=== PATIENT | female | born 1975 | race Two or more races ===

== ENCOUNTER 2020-07-07 21:58 | Emergency (ER) | payer OTHER ==
[~2020-07-07] VITALS: Ht 157.5 cm; Wt 89.8 kg
[~2020-07-07 21:58] MED LIST: BUPR-51; LISI20TA PO; MINO80TA PO; ZOLP5TAB2; [UNRECOGNIZED DRUG - CODE]
--- NOTE | 2020-07-07 22:11 | NUR ---
SEEN AND EXAMINED BY
--- NOTE | 2020-07-07 22:12 | NUR ---
PATIENT CAME TO ER BED 5 C/O NON-RADIATING MIDSTERNAL CHEST PAIN UPON BREATHING SINCE TODAY "CHILLING" AROUND THE AFTERNOON. PATIENT STATES THAT SHE HAS BEEN FEELING DIZZY. PATIENT IS AAOX4. NO SOB. BREATHING EVENLY AND UNLABORED ON ROOM AIR. 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
[2020-07-07] MEDS ORDERED: PANTOPRAZOLE 40 MG VIAL ONE (22:13)
--- NOTE | 2020-07-07 22:22 | NUR ---
BLOOD COLLECTED AND SENT TO THE LAB.
[2020-07-07] MEDS ORDERED: PANTOPRAZOLE 40 MG VIAL IV ONE (22:30)
--- NOTE | 2020-07-07 22:45 | NUR ---
US AT BEDSIDE.
--- NOTE | 2020-07-07 22:45 | NUR ---
XRAY AT BEDSIDE
[2020-07-07 22:56] LABS: BASOPHILS # (AUTO) 0.1 /CMM (0.0-0.2); BASOPHILS % (AUTO) 1.1 % (0.0-2.0); HEMATOCRIT 36 % (33-45); HEMOGLOBIN 11.5 g/dL (11.5-14.8); LYMPHOCYTES # (AUTO) 2.2 /CMM (0.8-4.8); LYMPHOCYTES % (AUTO) 17.6 % (20.0-44.0); MEAN CORPUSCULAR HGB CONC 32 g/dl (31.0-36.0); MEAN CORPUSCULAR VOLUME 81 fL (82-100); MONOCYTES % (AUTO) 8.1 % (2.0-12.0); NEUTROPHILS # (AUTO) 8.8 /CMM (1.8-8.9); NEUTROPHILS % (AUTO) 69.2 % (43.0-81.0); PLATELET COUNT (AUTO) 413 /CMM (150-450); RED BLOOD CELL COUNT(AUTO) 4.39 MIL/uL (4.0-5.2); WHITE BLOOD COUNT (AUTO) 12.7 K/uL (4.3-11.0)
[2020-07-07 23:13] LABS: ALANINE AMINOTRANSFERASE 19 U/L (12-78); ALBUMIN 3.3 g/dL (3.4-5.0); ALKALINE PHOSPHATASE 104 U/L (46-116); ASPARTATE AMINOTRANSFERASE 15 U/L (15-37); BILIRUBIN,TOTAL 0.1 mg/dL (0.2-1.0); CALCIUM, SERUM 9.2 mg/dL (8.5-10.1); CARBON DIOXIDE 27 mmol/L (21-32); CHLORIDE 101 mmol/L (98-107); CREATININE 0.9 mg/dL (0.6-1.3); GLUCOSE 118 mg/dL (74-106); LIPASE 244 U/L (73-393); POTASSIUM 4.3 mmol/L (3.5-5.1); SODIUM SERUM 136 mmol/L (136-145); TOTAL PROTEIN, SERUM 8.1 g/dL (6.4-8.2); UREA NITROGEN, BLOOD 10 mg/dL (7-18)
--- NOTE | 2020-07-07 23:20 | NUR ---
US FINISHED WITH PROCEDURE
--- NOTE | 2020-07-07 23:52 | NUR ---
PATIENT STILL FEELS CHEST PRESSURE DENIES PAIN MEDICATIONS.
[2020-07-08] MEDS ORDERED: IV NS 0.9% 250 ML IV ONE ×2 (00:46→01:10)
[2020-07-08] MEDS ORDERED: CT SWABBABLE VALVE TRANS SET 1 EA INFUS.SET MC ONE (00:46)
[2020-07-08] MEDS ORDERED: IOHEXOL-350 100 ML VIAL IV ONE ×2 (00:46→01:10)
--- NOTE | 2020-07-08 00:53 | NUR ---
PT BROUGHT BY RADIOLOGY TO CT
--- NOTE | 2020-07-08 02:39 | NUR ---
PT RETURNED FROM CT
--- NOTE | 2020-07-08 05:12 | NUR ---
Patient discharged to home in stable condition. Written and verbal after care instructions given. Patient verbalizes understanding of instruction.IV removed. Catheter intact and site benign. Pressure and 4x4 applied to site. No bleeding noted.Pt ambulatory with a steady gait
[2020-07-08 05:13] VITALS: BP 136/84
== END 2020-07-08 05:14 | disposition home or self-care (01) ==
LOC: ER 22:01
DX: R07.89 Other chest pain (principal); R10.13 Epigastric pain; I10 Essential (primary) hypertension; E66.9 Obesity, unspecified; Z68.36 Body mass index [BMI] 36.0-36.9, adult; Z98.890 Other specified postprocedural states; Z88.2 Allergy status to sulfonamides; Z79.899 Other long term (current) drug therapy
CPT/HCPCS: 36415; 71045; 71275; 76705; 80048; 80076; 83690; 84484; 85025; 85378; 85730; 93005; 96374; 99285; C9113; J7050 ×2; Q9967 ×2

== ENCOUNTER 2025-01-12 09:17 | Emergency (ER) | payer BC, OTHER ==
[~2025-01-12] VITALS: Ht 152.4 cm; Wt 59.0 kg
[~2025-01-12 09:17] MED LIST changes: -BUPR-51; +BUPR-53
[2025-01-12 10:01] LABS: BASOPHILS % (AUTO) 0.4 % (0.0-2.0); EOSINOPHILS # (AUTO) 0.5 K/uL (0.0-0.7); EOSINOPHILS % (AUTO) 4.5 % (0.0-6.0); HEMATOCRIT 34 % (33-45); HEMOGLOBIN 11.2 g/dL (11.5-14.8); LYMPHOCYTES # (AUTO) 1.8 K/uL (0.8-4.8); LYMPHOCYTES % (AUTO) 14.8 % (20.0-44.0); MEAN CORPUSCULAR HEMOGLOBIN 29 PG (26.0-33.0); MEAN CORPUSCULAR HGB CONC 33 g/dl (31.0-36.0); MEAN CORPUSCULAR VOLUME 87 fL (82-100); MONOCYTES # (AUTO) 0.7 K/uL (0.1-1.30); MONOCYTES % (AUTO) 5.7 % (2.0-12.0); NEUTROPHILS % (AUTO) 74.6 % (43.0-81.0); PLATELET COUNT (AUTO) 685 K/uL (150-450); RED BLOOD CELL COUNT(AUTO) 3.93 MIL/uL (4.0-5.2); RED CELL DISTRIBUTION WIDTH 16.7 % (11.5-15.0)
[2025-01-12 10:18] LABS: CALCIUM, SERUM 9.7 mg/dL (8.5-10.1); CARBON DIOXIDE 29 mmol/L (21-32); CHLORIDE 104 mmol/L (98-107); CREATININE 0.7 mg/dL (0.6-1.3); GLUCOSE 101 mg/dL (74-106); POTASSIUM 3.7 mmol/L (3.5-5.1); SODIUM SERUM 140 mmol/L (136-145); UREA NITROGEN, BLOOD 13 mg/dL (7-18)
[2025-01-12 10:27] LABS: NT-PRO BNP 58 pg/mL (0-125)
[2025-01-12] MEDS ORDERED: IOHEXOL-350 100 ML VIAL IV ONE (10:46)
[2025-01-12] MEDS ORDERED: CT SWABBABLE VALVE TRANS SET 1 EA INFUS.SET MC ONE (10:46)
[2025-01-12] MEDS ORDERED: IV NS 0.9% 250 ML IV ONE (10:47)
[2025-01-12 12:00] VITALS: BP 118/72; TEMP 98; O2SAT 99
== END 2025-01-12 12:01 | disposition home or self-care (01) ==
LOC: ER 09:29
DX: R06.02 Shortness of breath (principal); R07.89 Other chest pain; M79.89 Other specified soft tissue disorders; I10 Essential (primary) hypertension; F32.A Depression, unspecified; Z88.2 Allergy status to sulfonamides; Z88.7 Allergy status to serum and vaccine; Z79.899 Other long term (current) drug therapy
CPT/HCPCS: 99285; 71275; 71045; 93005 ×2; 85025; 80048; 36415; 84484; 83880; 84702; J7050; Q9967